=== PATIENT | male | born 1975 | race Caucasian/White ===

== ENCOUNTER 2020-11-09 16:54 | Inpatient (IN) ==
[2020-11-09] MEDS ORDERED: IOPAMIDOL 100 ML BOTTLE IV ONE (16:55)
[2020-11-09] MEDS: HYDROmorphone 0.5 MG/0.5 ML SYRINGE IV PRN ×2 (17:14→18:39)
[2020-11-09 17:18] LABS: POC Blood Urea Nitrogen 16 mg/dL (6-20); POC CO2 25 mmol/L (22-30); POC Calcium, Ionized 1.17 mmEq/L (1.16-1.32); POC Chloride 102 mEq/L (96-108); POC Creatinine 1.2 mg/dL (0.6-1.2); POC Glucose, Random 97 mg/dL (70-105); POC Hematocrit 51 % (41-55); POC Potassium 4.3 mEql/L (3.3-5.1); POC Pro Time 12.2 sec (11.9-14.5); POC Sodium 137 mEq/L (133-145)
[2020-11-09] MEDS ORDERED: IPRATROPIUM/ALBUTEROL 3 ML AMPUL.NEB NEB ONE (17:37)
[2020-11-09] MEDS ORDERED: PROMETHAZINE 25 MG/ML VIAL IV PRN (17:47)
[2020-11-09] MEDS ORDERED: ONDANSETRON 4 MG/2 ML VIAL IV PRN (17:47)
[2020-11-09] MEDS ORDERED: HYDROmorphone 1 MG/ML SYRINGE IV PRN (17:47)
--- NOTE | 2020-11-09 17:48 | Cat Scan Report ---
INDICATION: fell in a manhole. COMPARISON: Chest x-ray dated 11/09/2020 TECHNIQUE: Axial images were obtained through the chest,abdomen and pelvis. Sagittally and coronally reformatted images. Aml Isovue 370 injected intravenously. FINDINGS: Chest CT: Lungs:No pulmonary parenchymal infiltrate or contusion. No pulmonary abnormality. Mediastinum:No mediastinal hematoma. Thoracic aorta is negative. No aortic injury. There is no pneumomediastinum. Distal esophageal wall appears diffusely thickened. Barium swallow or endoscopy recommended. A well-defined discrete mass is not identified. There is a probable small hiatal hernia. Heart:No significant cardiomegaly. No pericardial effusion Pleura:No hemothorax. There is no pneumothorax. Axilla, supraclavicular regions, chest wall:No pathologic axillary or supraclavicular adenopathy. Musculoskeletal:Fractures of the left 10th through 12th ribs posteriorly. No sternal fracture. Thoracic vertebral bodies are normal. No compression fractures. No paraspinal soft tissue mass. Abdomen/Pelvis: Liver:Negative liver. No focal intrahepatic mass. Liver contour is smooth. There is no ascites. No hepatic injury. Gallbladder, bilary:No calcified gallstones. No gallbladder wall thickening or pericholecystic fluid. No dilated bile ducts Spleen:No splenic injury. No perisplenic hemorrhage Pancreas:No pancreatic mass. No peripancreatic abnormality no retroperitoneal abnormality. No pancreatic injury. Adrenal glands:Negative Kidneys, ureters, bladder:No solid or cystic renal mass. No hydronephrosis. No renal contusion or fracture. No perinephric hemorrhage No hydroureter. No ureteral stones Bladder is grossly negative. No bladder calculi Gastrointestinal:No detectable colonic mass. There is no diverticulitis. Small bowel is negative. No mechanical small bowel obstruction. Stomach and duodenum are within normal limits Appendix: The appendix is negative Vascular:No abdominal aortic aneurysm Lymphatic:No pathologic retroperitoneal or mesenteric adenopathy Mesentery, peritoneum:No hemoperitoneum. No pneumoperitoneum. No focal abnormality Reproductive:There is calcification of the prostate Musculoskeletal:No compression fractures. There is an L3 anterosuperior limbus Transverse processes are intact. No fracture. No lytic lesions. Sacrum, pelvis, hips are negative. No inguinal or abdominal wall hernia IMPRESSION: 1. Fractures of the left 10th through 12th ribs. No pneumothorax or hemothorax 2. No other posttraumatic abnormality. 3. Possible distal esophageal wall thickening and small hiatal hernia. Barium swallow or endoscopy recommended 4. Examination was reviewed directly with Dr. Cuba The exam was performed using radiation dose optimization techniques including, but not limited to, automated exposure control, adjustment of the mA and/or kV according to patient size and use of iterative reconstruction technique. Interpreted and Authenticated by: Wolfgang Narayanan 11/09/20
--- NOTE | 2020-11-09 17:50 | XRay Report ---
INDICATION: trauma TECHNIQUE: AP portable supine chest x-ray COMPARISON: CT scan dated 11/09/2020 FINDINGS: Lungs:Lungs are negative. No focal pulmonary parenchymal infiltrate or mass Heart, vascular:No significant cardiomegaly. Pulmonary vascularity is normal. No pulmonary edema or pulmonary congestion Mediastinum, johana:No mediastinal widening Pleura:No detectable pneumothorax or hemothorax on this AP, supine radiograph Skeletal:No detectable rib fracture. Fractures of the left 10th through 12th ribs are identified on CT scan. IMPRESSION: Negative AP supine chest x-ray Interpreted and Authenticated by: Wolfgang Narayanan 11/09/20
[2020-11-09] MEDS ORDERED: IPRATROPIUM/ALBUTEROL 3 ML AMPUL.NEB NEB PRN (17:52)
--- NOTE | 2020-11-09 17:55 | Emergency Department Note ---
Trauma HPI General Chief Complaint: Trauma Stated Complaint: trauma Time Seen by Provider: 11/09/20 17:04 Source: patient and EMS Mode of arrival: EMS Limitations: no limitations History of Present Illness HPI Narrative: Narrative: This 45-year-old male accidentally stepped into a manhole while working in [employer]-he landed with his left ribs against the side of the manhole. He was initially seen out there at [facility] and the midlevel working there contacted me as he was afraid the patient had a splenic type injury and needed a scan. There was concern that there was a small pneumothorax less than 10% at the left apices as well. However the patient was normoxic and otherwise moving air well. He was placed on oxygen and brought here by EMS. He did not hit his head or neck nor did he lose consciousness. He is not on a blood thinner He denies recent illness or major medical problems except hypertension and asthma. He does smoke Related Data Previous Rx's Medication Instructions Recorded albuterol sulfate 90 mcg/actuation 2 puff INHALATION Q6H PRN #18 g 05/26/20 aerosol inhaler metoprolol succinate 50 mg 50 mg PO QDAY #90 tab 10/06/20 tablet,extended release 24 hr Allergies Allergy/AdvReac Type Severity Reaction Status Date / Time Penicillins Allergy Unknown Hives Verified 11/09/20 17:05 Sulfa (Sulfonamide Allergy Hives Verified 11/09/20 17:05 Antibiotics) Review of Systems ROS ROS Narrative: Narrative: All systems ED: reviewed and negative except as stated. [facility] Narrative Patient History Narrative: Narrative: Medical/Surgical/Family History All Active Problems (Updated 11/09/20 @ 18:23 by Jose Cuba MD) Ribs, multiple fractures (Acute) Blunt chest trauma (Acute) Fracture of rib (Acute) Fall (Acute) Gastritis (Acute) Hypertension, essential (Chronic) Asthma (Chronic) Allergic rhinitis due to pollen (Chronic) Medical History Allergic rhinitis due to pollen (Chronic) Asthma (Chronic) Gastritis (Acute) Hypertension, essential (Chronic) Surgical History History of esophagogastroduodenoscopy (EGD) (Chronic 09/29/16) Social History Smoking Status: Current every day smoker Alcohol Intake Frequency: a few times a month Substance Use: does not use Exam Narrative Narrative: Narrative: Primary survey shows intact airway breathing circulation GCS of 15. I do not see hemorrhage anywhere Secondary survey shows normocephalic atraumatic. Conjunctive are clear sclerae white nonicteric. No nasal discharge or congestion. Oropharynx pink and moist. Tongue is midline and without perioral trauma. Neck is supple without lymphadenopathy thyromegaly. Heart is regular rate and rhythm no murmur appreciated. Lungs are clear to auscultation bilaterally without wheezes rales rhonchi or respiratory distress. Abdomen is soft nontender nondistended except over on the left side left upper quadrant with mild tenderness. We did undress him down to his underwear I looked all over his body and I do not see any other injuries except as noted above below. We logrolled him and I palpated his spine. No deformity or other injury pattern is seen to his thoracic lumbar or cervical spine. No abrasion laceration ecchymoses erythema edema rash or other concerning feature. However he does have tenderness at the left posterior lower ribs-this is relatively profound. We continue to keep him on oxygen via mask General Limitations: no limitations Course Vital Signs Vital signs: Vital Signs Pulse Rate 85 11/09/20 16:57 Respiratory Rate 20 11/09/20 16:57 Blood Pressure 142/113 11/09/20 16:57 Pulse Oximetry (%) 100 11/09/20 16:57 Pulse Rate 91 H 11/09/20 18:01 Respiratory Rate 19 11/09/20 18:01 Blood Pressure 212/125 11/09/20 18:01 Pulse Oximetry (%) 100 11/09/20 18:01 [facility] Narrative Medical decision making narrative: Narrative: We initially did a full trauma alert contacting anesthesia as well as surgery laboratory and radiology. Initial chest x-ray does not show evidence of pneumothorax. After primary and secondary surveys he was sent to the CT scanner for chest abdomen pelvis CTs. we treated his pain with Dilaudid and started IV fluids. Labs were ordered. CT scan shows fractures of 10th 11th and 12th ribs without pneumothorax or other internal organ injury. I reviewed the case with Dr. Jose Cuba, general surgeon-he came and saw the patient. He agreed to accept the patient for further care and evaluation in the hospital. Because the mechanism of injury, it is felt that his risk of pneumothorax or delayed injury is relatively high and observation is recommended. I filled out Workmen's Comp. paperwork. Laboratory was still pending at the time of admission Lab Data Lab results reviewed: Yes I reviewed the patient's lab results. Result diagrams: 11/09/20 17:03 11/09/20 17:03 Labs: Lab Results 11/09/20 11/09/20 11/09/20 Range/Units 17:03 17:03 17:03 WBC 13.4 H (4.5-11.0) K/mcL RBC 5.30 (4.50-5.90) M/mcL Hgb 16.8 H (13.5-16.5) g/dL Hct 49.7 (41.0-55.0) % POC Hct 51 (41-55) % MCV 93.8 (80.0-100.0) fL MCH 31.7 (26.0-34.0) pg MCHC 33.8 (31.0-36.0) g/dL RDW 12.5 (11.5-14.5) % Plt Count 264 (140-440) K/mcL MPV 9.9 (7.4-10.4) fL Neut % (Auto) 77.6 (38.0-78.0) % Lymph % (Auto) 14.3 L (15.0-49.0) % [place] % (Auto) 5.4 (1.0-12.0) % Eos % (Auto) 2.2 (0.0-7.0) % Baso % (Auto) 0.5 (0.0-2.0) % Lymph # (Auto) 1.92 (1.50-4.80) K/mcL [place] # (Auto) 0.73 (0.10-0.90) K/mcL Eos # (Auto) 0.29 (0.00-0.70) K/mcL Baso # (Auto) 0.07 (0.00-0.20) K/mcL Absolute Neutrophils 10.42 H (1.80-8.00) K/mcL POC PT 12.2 (11.9-14.5) sec POC INR 1.0 (0.8-1.2) POC Sodium 137 (133-145) mEq/L POC Potassium 4.3 (3.3-5.1) mEql/L POC Chloride 102 (96-108) mEq/L POC Total CO2 25 (22-30) mmol/L POC BUN 16 (6-20) mg/dL POC Creatinine 1.2 (0.6-1.2) mg/dL POC Glucose 97 (70-105) mg/dL POC WB Ioniz Calcium 1.17 (1.16-1.32) mmEq/L Radiology Data Radiology results reviewed: Yes I reviewed the patient's radiology results. Discharge Plan Patient/Caregiver Discharge Instructions Pt seen by FLUX CORE WELDER/PA only: No Clinical Impression: Fracture of rib Qualifiers: Encounter type: initial encounter Rib fracture type: multiple ribs Fracture type: closed Laterality: left Qualified Code(s): S22.42XA - Multiple fractures of ribs, left side, initial encounter for closed fracture Fall Qualifiers: Encounter type: initial encounter Qualified Code(s): W19.XXXA - Unspecified fall, initial encounter Patient Disposition: Xfer As Inpt ([facility]) Condition: Fair Follow up with: Michael Perez MD [Primary Care Provider] - Prescriptions: No Action albuterol sulfate 90 mcg/actuation HFA aerosol inhaler 2 puff INHALATION Q6H PRN (Reason: shortness of breath or wheezing) Qty: 18 RF: 2 metoprolol succinate [Toprol XL] 50 mg tablet extended release 24 hr 50 mg PO QDAY Qty: 90 RF: 0
[2020-11-09 18:05] LABS: Basophils # (Auto) 0.07 K/mcL (0.00-0.20); Basophils % (Auto) 0.5 % (0.0-2.0); Eosinophils # (Auto) 0.29 K/mcL (0.00-0.70); Eosinophils % (Auto) 2.2 % (0.0-7.0); Hematocrit 49.7 % (41.0-55.0); Hemoglobin 16.8 g/dL (13.5-16.5); Lymphocytes # (Auto) 1.92 K/mcL (1.50-4.80); Lymphocytes % (Auto) 14.3 % (15.0-49.0); Mean Cell Volume 93.8 fL (80.0-100.0); Mean Corpuscular HGB Conc 33.8 g/dL (31.0-36.0); Mean Platelet Volume 9.9 fL (7.4-10.4); Monocytes # (Auto) 0.73 K/mcL (0.10-0.90); Monocytes % (Auto) 5.4 % (1.0-12.0); Neutrophils % (Auto) 77.6 % (38.0-78.0); Platelet Count 264 K/mcL (140-440); Red Cell Distribution Width 12.5 % (11.5-14.5); WBC 13.4 K/mcL (4.5-11.0)
[2020-11-09 18:29] LABS: ALT/SGPT 32 U/L (<40); AST/SGOT 22 U/L (<40); Albumin 4.3 gm/dL (3.2-5.2); Albumin/Globulin Ratio 1.5 (1.0-2.3); Alkaline Phosphatase 69 U/L (39-117); Bilirubin,Total 0.3 mg/dL (0.1-1.0); Blood Urea Nitrogen 14 mg/dL (6-20); Carbon Dioxide 24 mmol/L (22-30); Chloride 101 mmol/L (96-108); Globulin 2.8 gm/dL (2.2-3.7); Glomerular Filtration Rate 72; Glucose 96 mg/dL (70-105)
[2020-11-09] MEDS ORDERED: CYCLOBENZAPRINE 10 MG TABLET PO PRN (18:32)
--- NOTE | 2020-11-09 18:32 | General Surg History&Physical ---
HPI History of Present Illness Patient information: Note initiated : 11/09/20 at 6:22 pm Service Date, if different from initiated Date: [] Patient: Bill Cuba 45 y/o M admitted on for trauma. Chief Complaint: [] Chief complaint: left posterior chest trauma History of present illness: 45-year-old male :who was transferred for evaluation because of blunt chest trauma that he sustained while working on the job. He fell backwards in an open manhole and struck his left POSTERIOR CHEST. Flank and left upper extremity.initial concern was that he had a pneumothorax, however, chest x-ray and CT only shows multiple rib fractures posteriorly on 9, 10 and 11.he has shortness of breath due to splinting from pain. There is no evidence of solid visceral injury. He is admitted for monitoring and for pain control Constitutional Constitutional: Present malaise EENT Eyes: Absent diplopia, loss of vision and pain Ears: Absent decreased hearing, ear discharge and tinnitus Nose, mouth and throat: Present neck pain; Absent abnormal hearing and vertigo Cardiovascular Cardiovascular: Present chest pain, chest pain with activity, dyspnea on exertion and rapid heart rate Respiratory Respiratory: Present dyspnea on exertion, pain on inspirtation and pain with cough; Absent dyspnea Gastrointestinal Gastrointestinal: Present abdominal pain; Absent cramping, nausea and vomiting Genitourinary Genitourinary: flank pain Musculoskeletal Musculoskeletal: Present arthralgias, back pain, myalgias and neck pain Integumentary Integumentary: Absent pruritus Neurological Neurological: Absent abnormal gait, abnormal hearing, focal weakness and syncope Psychiatric Psychiatric: Absent confusion and memory loss Hematologic/Lymphatic Hematologic/Lymphatic: Absent easy bleeding, easy bruising and lymphadenopathy Allergic/Immunologic Allergic/Immunologic: Absent tongue swelling, throat swelling, wheezing and lip swelling PFSH PFSH All Active Problems (Updated 11/09/20 @ 18:23 by Aaron Cuba MD) Ribs, multiple fractures (Acute) Blunt chest trauma (Acute) Fracture of rib (Acute) Fall (Acute) Gastritis (Acute) Hypertension, essential (Chronic) Asthma (Chronic) Allergic rhinitis due to pollen (Chronic) Medical History Allergic rhinitis due to pollen (Chronic) Asthma (Chronic) Gastritis (Acute) Hypertension, essential (Chronic) Surgical History History of esophagogastroduodenoscopy (EGD) (Chronic 09/29/16) Social History (Updated 01/02/20 @ 17:06 by Michael Perez MD) household members: alone marital status: education level: high school smoking status: Current every day smoker alcohol intake frequency: a few times a month substance use type: does not use MEDS/ALLERGIES Home Medications and Allergies Home Medications Medication Instructions Recorded Confirmed Type metoprolol succinate 50 mg 50 mg PO QDAY #90 tab 10/06/20 11/09/20 Rx tablet,extended release 24 hr albuterol sulfate [ProAir HFA] 2 puff INHALATION Q6H PRN 11/09/20 11/09/20 History Allergies Allergy/AdvReac Type Severity Reaction Status Date / Time Penicillins Allergy Unknown Hives Verified 11/09/20 17:05 Sulfa (Sulfonamide Allergy Hives Verified 11/09/20 17:05 Antibiotics) Physical Examination Vital Signs Vital signs: Pulse Resp BP Pulse Ox 96 H 17 228/216 100 11/09/20 18:21 11/09/20 18:21 11/09/20 18:16 11/09/20 18:21 General physical appearance General physical exam: well developed, well nourished, moderate distress, moderate pain and obese Eyes Eye exam: PERRL and normal ocular movement ENT ENT exam: normal nares, normal mucosa, no hearing loss and no congestion Head Head exam IM: Present atraumatic, normal inspection and normocephalic Neck Neck exam: no masses, no bruits, trachea midline, no lymphadenopathy and no annmarie ous distension Cardiovascular Cardiovascular exam IM: Present normal rate and rhythm, RRR, +S1, +S2 and tachycardia; Absent JVD and rubs Respiratory Respiratory exam: other (decreased breath sounds bilaterally due to splinting; no wheezes, rales or rhonchi; no rubs noted) Abdomen Abdomen: Present tender (left upper quadrant and left midabdomen tenderness with guarding) Integumentary Integumentary: Present other (superficial bruises of right medial thigh, left anterior alvarado) Neurologic Neurologic: Present normal coordination and normal sensation Musculoskeletal Musculoskeletal: Present normal gait, normal posture and other Psychiatric Psychiatric: Present oriented to time, oriented to person, oriented to place, speech is normal and memory intact Results Labs Result diagrams: 11/10/20 09:32 11/09/20 17:03 Labs: Abnormal lab results 11/09/20 Range/Units 17:03 WBC 13.4 H (4.5-11.0) K/mcL Hgb 16.8 H (13.5-16.5) g/dL Lymph % (Auto) 14.3 L (15.0-49.0) % Absolute Neutrophils 10.42 H (1.80-8.00) K/mcL All other labs normal. A/P Assessment and plan (1) Blunt chest trauma: Status: Acute Qualifiers: Encounter type: initial encounter Qualified Code(s): S29.8XXA - Other specified injuries of thorax, initial encounter (2) Ribs, multiple fractures: Status: Acute Qualifiers: Encounter type: initial encounter Fracture type: closed Laterality: left Qualified Code(s): S22.42XA - Multiple fractures of ribs, left side, initial encounter for closed fracture (3) Hypertension, essential: Status: Chronic Narrative A/P Narrative: ADMIT TO INPATIENT I V ANALGESICS OXYGEN SUPPLEMENTS F/U CXR IN THE A M Time Spent With Patient Time: Total time spent is greater than 50% in coordination of care (as documented) at patient's floor/unit and/or counseling patient:
[2020-11-09 18:54] LABS: Appearance,Urine CLEAR (Clear); Bilirubin,Urine Negative (Negative); Color,Urine YELLOW; Culture Indicated,Urine No; Glucose,Urine (UA) Negative (Negative); Ketones,Urine Negative (Negative); Leukocyte Esterase,Urine Negative /ug (Negative); Mucus,Urine FEW /hpf; Nitrate,Urine Negative (Negative); Protein,Urine Negative (Negative); Specific Gravity,Urine 1.028 (1.000-1.035); Urine Blood Negative (Negative); Urine RBC 1 /hpf (0-3); Urine Squamous Epithelial Cell 0 /hpf (0-4); Urine WBC 1 /hpf (0-4); Urobilinogen,Urine Negative
[2020-11-09] MEDS: IPRATROPIUM/ALBUTEROL 3 ML AMPUL.NEB NEB SCH ×2 (19:10→22:34)
[2020-11-09] MEDS: 0.9 % SODIUM CHLORIDE 1,000 ML IV SCH (20:57)
[2020-11-09] MEDS: ACETAMINOPHEN 1,000 MG/100 ML BAG IV SCH (20:58)
[2020-11-09] MEDS ORDERED: SENNOSIDES 1 TABLET PO SCH (21:00)
[2020-11-09] MEDS: KETOROLAC 30 MG/ML VIAL IV SCH (21:00)
[2020-11-09] MEDS: DOCUSATE SODIUM 100 MG CAPSULE PO SCH (21:47)
[2020-11-10] MEDS: 0.9 % SODIUM CHLORIDE 10 ML SYRINGE IV SCH ×3 (00:30→13:50)
[2020-11-10] MEDS: KETOROLAC 30 MG/ML VIAL IV SCH ×3 (00:43→11:26)
[2020-11-10] MEDS: ACETAMINOPHEN 1,000 MG/100 ML BAG IV SCH ×3 (00:44→11:27)
[2020-11-10] MEDS: 0.9 % SODIUM CHLORIDE 1,000 ML IV SCH ×2 (02:06→09:23)
[2020-11-10] MEDS: IPRATROPIUM/ALBUTEROL 3 ML AMPUL.NEB NEB SCH ×3 (03:27→12:24)
[2020-11-10] MEDS ORDERED: PANTOPRAZOLE 40 MG TABLET PO SCH (07:30)
[2020-11-10] MEDS: DOCUSATE SODIUM 100 MG CAPSULE PO SCH (07:41)
--- NOTE | 2020-11-10 08:37 | XRay Report ---
INDICATION: F/U OF BLUNT CHEST TRAUMA TECHNIQUE: PA and lateral upright chest x-ray COMPARISON: Previous chest x-ray dated 11/09/2020. Previous chest CT scan dated 11/09/2020 FINDINGS: History of left 10th through 12th rib fractures. These are not well visualized Lungs: Lungs are negative. No focal pulmonary parenchymal infiltrate or mass. No pulmonary contusion Heart, vascular: No significant cardiomegaly. Pulmonary vascularity is normal. No pulmonary edema or pulmonary congestion Mediastinum, johana: No mediastinal widening. No hilar mass Pleura:No pleural fluid. No pleural-based mass or calcification. No detectable pneumothorax or hemothorax Thoracic spine, ribs: No thoracic compression fracture. Left 10th through 12th rib fractures are not well visualized IMPRESSION: 1. No left pneumothorax or hemothorax 2. Left-sided rib fractures are not well visualized on plain film examination 3. No acute abnormality Interpreted and Authenticated by: Wolfgang Narayanan 11/10/20
[2020-11-10 10:13] LABS: Basophils # (Auto) 0.04 K/mcL (0.00-0.20); Basophils % (Auto) 0.5 % (0.0-2.0); Eosinophils # (Auto) 0.19 K/mcL (0.00-0.70); Eosinophils % (Auto) 2.5 % (0.0-7.0); Hematocrit 47.1 % (41.0-55.0); Hemoglobin 15.4 g/dL (13.5-16.5); Lymphocytes # (Auto) 1.28 K/mcL (1.50-4.80); Lymphocytes % (Auto) 17.1 % (15.0-49.0); Mean Cell Volume 95.9 fL (80.0-100.0); Mean Corpuscular HGB Conc 32.7 g/dL (31.0-36.0); Mean Platelet Volume 9.5 fL (7.4-10.4); Monocytes # (Auto) 0.26 K/mcL (0.10-0.90); Monocytes % (Auto) 3.5 % (1.0-12.0); Neutrophils % (Auto) 76.4 % (38.0-78.0); Platelet Count 226 K/mcL (140-440); RBC 4.91 M/mcL (4.50-5.90); Red Cell Distribution Width 12.5 % (11.5-14.5); WBC 7.5 K/mcL (4.5-11.0)
--- NOTE | 2020-11-10 13:44 | Discharge Summary ---
Discharge Provider Provider Patient information: Note initiated : 11/10/20 at 1:33 pm Service Date, if different from initiated Date: [] Patient: Bill Cuba 45 y/o M admitted on 11/09/20 for trauma. Chief Complaint: [] Date of admission: 11/09/20 20:10 Discharge date: 11/10/20 Primary care physician: Michael Perez MD Admitting clinician: Eveline Cuba Attending physician on admission: Aaron Cuba Consults: 11/09/20 Consult to Physician [CONS] Stat Comment: Consulting Provider: Aaron Cuba Reason For Exam: Physician to Consult Attending physician on discharge: Aaron Cuba Discharging clinician: Aaron Cuba COURSE Hospital Course Hospital course: 45-year-old male who was admitted last evening for evaluation blood trunk and torso trauma after falling into an open manhole. He had significant trauma to his left posterior lateral chest and left flank as well as his lower extremities. He was transferred with the concern that he had a traumatic pneumothorax and possible splenic injury. When the patient arrived he was in severe pain but had good oxygenation in spite of splinting. Primary chest x-ray was normal without pneumothorax. CT of the thorax revealed fracture of the posterior aspect of T10-11 and 12 but no evidence of pulmonary parenchymal injury or pneumothorax. There was no evidence of hemothorax. Abdominal CT did not reveal any evidence of visceral injury and no hematomas of the retro peritoneum. There was no evidence of splenic, pancreatic, hepatic, intestinal, arterial injury. The patient was admitted and started on analgesics with acetaminophen and ketorolac IV. He also received hydromorphone 1 mg IV every 2 hours IV. Flexeril was also ordered on a every 6 hours schedule. Patient had good control of pain and was able to mobilize significantly improved today. Chest x-ray shows no evidence of bony or parenchymal pulmonary injury and no pneumothorax. Patient is clinically stable at this time and he is stable for discharge home on oral analgesics.-. Discharge diagnosis: Traumatic blunt chest injury Secondary discharge diagnosis: Fracture of T10-11 and 12 ribs Blunt torso trauma Reason for admission: Traumatic blunt chest injury with rib fractures Procedures: None Pertinent studies/significant findings: CT of chest abdomen and pelvis Complications: None Time Spent with Patient Time attestation: Total time spent providing and/or coordinating discharge services: Physical Examination Vital Signs Vital signs: Temp Pulse Resp BP Pulse Ox 97.6 F 87 20 124/77 96 11/10/20 12:00 11/10/20 12:00 11/10/20 12:00 11/10/20 12:00 11/10/20 12:00 General physical appearance General physical exam: moderate distress and moderate pain Eyes Eye exam: PERRL and normal ocular movement ENT ENT exam: normal nares, normal mucosa, no hearing loss and no congestion Neck Neck exam: no masses, no bruits, trachea midline, no lymphadenopathy and no venous distension Cardiovascular Cardiovascular exam IM: Present normal rate and rhythm, RRR, +S1, +S2 and tachycardia; Absent JVD and rubs Respiratory Respiratory exam: other (decreased breath sounds bilaterally due to splinting; no wheezes, rales or rhonchi; no rubs noted) Integumentary Integumentary: Present other (superficial bruises of right medial thigh, left anterior alvarado) Neurologic Neurologic: Present normal coordination and normal sensation Musculoskeletal Musculoskeletal: Present normal gait, normal posture and other Psychiatric Psychiatric: Present oriented to time, oriented to person, oriented to place, speech is normal and memory intact Discharge Plan Patient/Caregiver Discharge Instructions Activity: increase activity as tolerated Diet: Regular Diet Prescriptions: New oxycodone-acetaminophen [Endocet] 10-325 mg Tablet 1 tab PO Q4H PRN (Reason: Pain) Qty: 60 RF: 0 cyclobenzaprine 10 mg tablet 10 mg PO TID PRN (Reason: muscle spasm) Qty: 90 RF: 1 Continued metoprolol succinate [Toprol XL] 50 mg tablet extended release 24 hr 50 mg PO QDAY Qty: 90 RF: 0 albuterol sulfate [ProAir HFA] 90 mcg/actuation HFA aerosol inhaler 2 puff INHALATION Q6H PRN (Reason: shortness of breath or wheezing) RF: 0 Follow Up Plan Follow up with: Michael Perez MD [Primary Care Provider] - Patient Disposition: Home, Self-Care Prognosis: Good Rehab Potential: Good I certify that the patient requires SNF services: No Overall status at discharge: patient is not back to baseline Discharge Orders: Discharge Order (Routine); Ordered 11/10/20 Ordered By: Aaron Cuba Pending Pending Pending: Resuscitation Status Full Code Diet Regular Diet Start MonNov 10 915 Albuterol/Ipratropium (Duoneb) 3 ml NEB Q4HRT [facility] Last Admin: 11/10/20 12:24 Dose: Not Given Documented by: Admin: 11/10/20 08:15 Dose: 3 ml Documented by: Admin: 11/10/20 03:27 Dose: 3 ml Documented by: Admin: 11/09/20 22:34 Dose: 3 ml Documented by: Admin: 11/09/20 19:10 Dose: Not Given Documented by: BETH Docusate Sodium (Colace) 100 mg PO BID [facility] Last Admin: 11/10/20 07:41 Dose: Not Given Documented by: Admin: 11/09/20 21:47 Dose: Not Given Documented by: CALOS Sodium Chloride (Sodium Chloride 0.9%) 1,000 mls @ 125 mls/hr IV .Q8H [facility] Last Admin: 11/10/20 09:23 Dose: Not Given Documented by: Infusion: 11/10/20 05:40 Dose: 125 mls/hr Documented by: Admin: 11/10/20 02:06 Dose: Not Given Documented by: Admin: 11/09/20 20:57 Dose: 125 mls/hr Documented by: CALOS Acetaminophen (Ofirmev) 1,000 mg in 100 mls @ 200 mls/hr IV Q6H [facility] Stop: 11/10/20 17:59 Last Infusion: 11/10/20 11:57 Dose: 0 mls/hr Documented by: Admin: 11/10/20 11:27 Dose: 200 mls/hr Documented by: Infusion: 11/10/20 11:27 Dose: 0 mls/hr Documented by: Infusion: 11/10/20 06:09 Dose: 0 mls/hr Documented by: Admin: 11/10/20 05:37 Dose: 100 mls/hr Documented by: Infusion: 11/10/20 01:20 Dose: 0 mls/hr Documented by: Admin: 11/10/20 00:44 Dose: 200 mls/hr Documented by: Infusion: 11/09/20 21:47 Dose: 0 mls/hr Documented by: Admin: 11/09/20 20:58 Dose: 200 mls/hr Documented by: CALOS Ketorolac Tromethamine (Toradol) 30 mg IV Q6 [facility] Stop: 11/11/20 12:01 Last Admin: 11/10/20 11:26 Dose: 30 mg Documented by: Admin: 11/10/20 05:37 Dose: 30 mg Documented by: Admin: 11/10/20 00:43 Dose: 30 mg Documented by: Admin: 11/09/20 21:00 Dose: 30 mg Documented by: CALOS Pantoprazole Sodium (Protonix) 40 mg PO QAMAC [facility] Last Admin: 11/10/20 07:45 Dose: 40 mg Documented by: SKY Senna (Senokot) 2 tab PO HS [facility] Last Admin: 11/09/20 21:47 Dose: Not Given Documented by: CALOS Sodium Chloride (Saline Flush) 10 ml IV Q8 [facility] Last Admin: 11/10/20 05:39 Dose: Not Given Documented by: Admin: 11/10/20 00:30 Dose: Not Given Documented by: CALOS Shift Summary 11/10/20 02:57 Shift Summary by Tae Miramontes Admitted 2/1 PM after fall in [facility] in [place] with resultant left rib fx's #10,11,12. Left iv site 18G with ns @ 125/hr and has received Toradol and Ofirmev q6hr with good control of pain per patient report. A/O x4, became quite angry with me as he felt I was less than respectful towards him as he is a current smoker. Anger resolved after some time and an apology for the misunderstanding but be aware this is a "hot topic" for him and he was also tired of all the needed admit questions. Has voided qs/urinal. Has a Hx of asthma and HTN and has his HHN at the bedside as well as ordered resp Tx's. Sao2 90's on R/a. Very small left ant tib abrasion and right medial thigh bruise quite tender to touch. Did not strike head in fall and no pneumo on CT. Medical HX portion of admit not completed d/t anger episode. Please complete this and review personal belongings as he was having no part of continued intera ction at that time. Rest of report to follow at bedside. Prefers to be referred to as "Kaleb". Initialized on 11/10/20 02:57 - END OF NOTE
== END 2020-11-10 15:30 | disposition home or self-care (01) | DRG 185 ==
LOC: ED 16:54 → MEDSUR 20:10
PROVIDERS: ADMIT Family Medicine Adult Medicine; ATTEND Family Medicine Adult Medicine